=== PATIENT | female | born 1955 | race American Indian/Alaskan Native ===

== ENCOUNTER 2019-10-16 06:29 | Emergency (ER) | payer SELFPAY ==
[2019-10-16 07:31] VITALS: BP 149/82
[2019-10-16 08:59] LABS: Basophils % (Auto) 0.5 % (0.0-1.8); Eosinophils % (Auto) 0.2 % (0.0-4.3); Hematocrit 36.4 % (30.3-42.9); Hemoglobin 12.3 gm/dl (10.1-14.3); Lymphocytes # (Auto) 0.7 K/mm3 (1.2-5.4); Lymphocytes % (Auto) 10.3 % (13.4-35.0); Mean Corpuscular HGB Conc 34 % (30-34); Mean Corpuscular Volume 84 fl (79-97); Monocytes # (Auto) 0.4 K/mm3 (0.0-0.8); Monocytes % (Auto) 5.3 % (0.0-7.3); Platelet Count 443 K/mm3 (140-440); Red Blood Count 4.35 M/mm3 (3.65-5.03); Red Cell Distribution Width 14.6 % (13.2-15.2)
[2019-10-16 09:08] LABS: INR 1.04 (0.87-1.13)
[2019-10-16 09:14] LABS: Alanine Aminotransferase 17 units/L (7-56); BUN/Creatinine Ratio 28; Bilirubin,Direct < 0.2 mg/dL (0-0.2); Blood Urea Nitrogen 17 mg/dL (7-17); Calcium 9.5 mg/dL (8.4-10.2); Hemolysis Index 5
--- NOTE | 2019-10-16 09:14 | Cat Scan Report ---
CT HEAD WITHOUT CONTRAST INDICATION / CLINICAL INFORMATION: headache, altered mental status. TECHNIQUE: All CT scans at this location are performed using CT dose reduction for ALARA by means of automated e xposure control. COMPARISON: None available. FINDINGS: HEMORRHAGE: None. EXTRA-AXIAL SPACES: Normal in size and morphology for the patient's age. VENTRICULAR SYSTEM: Normal in size and morphology for the patient's age. CEREBRAL PARENCHYMA: No significant abnormality. No acute territorial infarct. MIDLINE SHIFT OR HERNIATION: None. CEREBELLUM / BRAINSTEM: No significant abnormality. ORBITS: No acute abnormality. SOFT TISSUES of HEAD: No significant abnormality. CALVARIUM: Postsurgical changes of the frontal bone and right orbital rim, possibly from old trauma. PARANASAL SINUSES / MASTOID AIR CELLS: Clear where visualized. ADDITIONAL FINDINGS: None. IMPRESSION: 1. No acute intracranial abnormality. Signer Name: Justice Borja MD Signed: 10/16/2019 9:09 AM Workstation Name: [id number]
[2019-10-16 09:16] LABS: Partial Thromboplastin Time 25.2 Sec. (24.2-36.6)
--- NOTE | 2019-10-16 09:21 | Emergency Department Report ---
ED General Adult HPI - General Chief complaint: Headache Stated complaint: HEADACHE Time Seen by Provider: 10/16/19 08:01 Source: patient Mode of arrival: Ambulatory Limitations: No Limitations - History of Present Illness Initial comments: This is a 64-year-old female who states that she had a craniotomy for tumor in 2017. She does not know the name of the tumor. She states that she [place]. She denies vomiting. She denies any focal neurological change. She states he is able to ambulate and lives with sister. She's had no fever or chills. The headache is mild to moderate in intensity. She is not asking for any medication at this time. It is somewhat difficult to ascertain why she is coming to the emergency department this day in particular. She states these she has chronic memory loss. He has been under the care of a neurologist at home. I asked the patient to show me where her scar was from her previous craniotomy. She was unable to do so. I was unable to find a craniotomy scar as well. -: Gradual, hour(s) Location: head Radiation: non-radiation Quality: aching Consistency: intermittent, now resolved Worsens with: none Associated Symptoms: denies other symptoms - Related Data Previous Rx's Medication Instructions Recorded Last Taken Type traMADoL [Ultram 50 MG tab] 50 mg PO Q6HR PRN #7 tablet 10/16/19 Unknown Rx Allergies Allergy/AdvReac Type Severity Reaction Status Date / Time Unable to Assess Allergy Unverified 10/16/19 07:25 ED Review of Systems ROS: Stated complaint: HEADACHE Other details as noted in HPI Constitutional: denies: chills, fever Eyes: denies: eye pain, eye discharge, vision change ENT: denies: ear pain, throat pain Respiratory: denies: cough, shortness of breath, wheezing Cardiovascular: denies: chest pain, palpitations Endocrine: no symptoms reported Gastrointestinal: denies: abdominal pain, nausea, diarrhea Genitourinary: denies: urgency, dysuria, discharge Musculoskeletal: denies: back pain, joint swelling, arthralgia Skin: denies: rash, lesions Neurological: headache. denies: weakness, paresthesias Psychiatric: denies: anxiety, depression Hematological/Lymphatic: denies: easy bleeding, easy bruising ED Past Medical Hx - Past Medical History Previous Medical History?: Yes Hx Hypertension: Yes Hx Seizures: Yes Additional medical history: Brain Tumor. Patient denied mental health disorder - Surgical History Past Surgical History?: Yes Additional Surgical History: Tumor from head removed - Social History Smoking Status: Never Smoker Substance Use Type: Prescribed - Medications Home Medications: Home Medications Medication Instructions Recorded Confirmed Last Taken Type traMADoL [Ultram 50 MG tab] 50 mg PO Q6HR PRN #7 tablet 10/16/19 Unknown Rx ED Physical Exam - General Limitations: No Limitations General appearance: alert, in no apparent distress - Head Head exam: Present: atraumatic, normocephalic, other (did not find a craniotomy scar) - Eye Eye exam: Present: normal appearance, PERRL, EOMI. Absent: scleral icterus - ENT ENT exam: Present: mucous membranes moist - Neck Neck exam: Present: normal inspection. Absent: tenderness, meningismus - Respiratory Respiratory exam: Present: normal lung sounds bilaterally. Absent: respiratory distress - Cardiovascular Cardiovascular Exam: Present: regular rate, normal rhythm. Absent: systolic murmur, diastolic murmur, rubs, gallop - GI/Abdominal GI/Abdominal exam: Present: soft, normal bowel sounds. Absent: distended, tenderness, guarding, rebound - Extremities Exam Extremities exam: Present: normal inspection - Back Exam Back exam: Present: normal inspection. Absent: CVA tenderness (R), CVA tenderness (L) - Neurological Exam Neurological exam: Present: alert, oriented X3, CN II-XII intact. Absent: motor sensory deficit - Psychiatric Psychiatric exam: Present: normal affect, normal mood - Skin Skin exam: Present: warm, dry, intact, normal color. Absent: rash ED Course Vital Signs 10/16/19 07:25 Temperature 99.4 F Pulse Rate 98 H Respiratory 18 Rate Blood Pressure 149/82 O2 Sat by Pulse 99 Oximetry - Reevaluation(s) Reevaluation #1: CT demonstrates old right orbital trauma. I do not believe the patient has had a craniotomy. There is no evidence of parenchymal disease on the CT or surgical changes. 10/16/19 09:21 Reevaluation #2: It would appear the patient is giving a partially factitious history. It is possible that she has a psychiatric disorder. In any case she does not meet any criteria for inpatient placement at this time. She will be referred to the [facility] and given a prescription for something for her headache. 10/16/19 09:22 ED Medical Decision Making - Lab Data Result diagrams: 10/16/19 08:18 10/16/19 08:18 Laboratory Results - last 24 hr 10/16/19 10/16/19 10/16/19 08:18 08:18 08:18 WBC 7.2 RBC 4.35 Hgb 12.3 Hct 36.4 MCV 84 MCH 28 MCHC 34 RDW 14.6 Plt Count 443 H Lymph % (Auto) 10.3 L [place] % (Auto) 5.3 Eos % (Auto) 0.2 Baso % (Auto) 0.5 Lymph # 0.7 L [place] # 0.4 Eos # 0.0 Baso # 0.0 Seg Neutrophils % 83.7 H Seg Neutrophils # 6.0 PT 13.7 INR 1.04 APTT 25.2 Sodium 137 Potassium 3.6 Chloride 96.3 L Carbon Dioxide 27 Anion Gap 17 BUN 17 Creatinine 0.6 L Estimated GFR > 60 BUN/Creatinine Ratio 28 Glucose 101 H Calcium 9.5 Magnesium 1.70 Total Bilirubin 0.20 Direct Bilirubin < 0.2 Indirect Bilirubin 0.0 AST 22 ALT 17 Alkaline Phosphatase 73 Total Protein 8.0 Albumin 4.0 Albumin/Globulin Ratio 1.0 - Radiology Data Radiology results: report reviewed (previous orbital postoperative change. No evidence of craniotomy. No acute process.) Critical care attestation.: If time is entered above; I have spent that time in minutes in the direct care of this critically ill patient, excluding procedure time. ED Disposition Clinical Impression: Cephalalgia Qualifiers: Headache type: unspecified Headache chronicity pattern: chronic headache Intractability: not intractable Qualified Code(s): R51 - Headache Disposition: DC-01 TO HOME OR SELFCARE Is pt being admited?: No Does the pt Need Aspirin: No Condition: Stable Instructions: Acute Headache (ED) Additional Instructions: Return any acute change or problem. Follow-up with your neurologist. Also referred her to a local clinic. Prescriptions: traMADoL [Ultram 50 MG tab] 50 mg PO Q6HR PRN #7 tablet PRN Reason: Pain Time of Disposition: 09:24
[2019-10-16] MEDS ORDERED: IBUPROFEN 600 MG TAB PO ONE (10:30)
== END 2019-10-16 11:10 | disposition home or self-care (01) ==
LOC: ED 06:29
DX: R51 Headache (principal); I10 Essential (primary) hypertension; Z79.899 Other long term (current) drug therapy; Z88.8 Allergy status to other drugs, medicaments and biological substances
CPT/HCPCS: 36415; 70450; 80048; 80076; 83735; 85025; 85610; 85730; 93005; 93010